=== PATIENT | female | born 1990 | race African-American/Black ===

== ENCOUNTER 2020-02-21 14:15 | Emergency (ER) | payer MEDICAID ==
[~2020-02-21] VITALS: Ht 165.1 cm; Wt 83.0 kg
[2020-02-21 14:27] VITALS: BP 105/75
== END 2020-02-21 15:03 | disposition home or self-care (01) ==
LOC: ER 14:15
DX: B86 Scabies (principal); Z88.6 Allergy status to analgesic agent; Z98.890 Other specified postprocedural states
CPT/HCPCS: 99282

== ENCOUNTER 2020-05-08 17:00 | Emergency (ER) | payer MEDICAID ==
[~2020-05-08] VITALS: Ht 175.3 cm; Wt 66.0 kg
[2020-05-08] MEDS ORDERED: ACETAMINOPHEN WITH CODEINE 300/30MG TABLET PO ONE (18:15)
[2020-05-08] MEDS ORDERED: LIDOCAINE HCL/PF 1% 10 MG/ML 5ML VIAL IJ ONE (18:30)
[2020-05-08] MEDS ORDERED: HYDROCODONE/ACETAMINOPHEN 5/325MG TABLET PO ONE (18:30)
[2020-05-08] MEDS ORDERED: TETANUS, DIPHTHERIA, PERTUSSIS VAC/PF 0.5ML (>7YR OLD) IM ONE (18:30)
[2020-05-08 18:35] VITALS: BP 114/63
== END 2020-05-08 21:43 | disposition home or self-care (01) ==
LOC: ER 17:00
DX: S01.01XA Laceration without foreign body of scalp, initial encounter (principal); W22.8XXA Striking against or struck by other objects, initial encounter; Y93.89 Activity, other specified; Y92.89 Other specified places as the place of occurrence of the external cause; Y99.8 Other external cause status
CPT/HCPCS: 12002; 70450; 70486; 73030; 73600; 81025; 90471; 90715; 99285; J3490